=== PATIENT | male | born 1995 | race Caucasian/White ===

== ENCOUNTER 2019-10-20 00:27 | Emergency (ER) | payer MEDICAID, SELFPAY ==
[2019-10-20 00:30] VITALS: BP 127/98; PULSE 107; RESP 18; TEMP 36.8; O2SAT 100; BMI 34.2
--- NOTE | 2019-10-20 00:34 | XRR_ITS ---
PROCEDURE INFORMATION: Exam: XR Left Knee Exam date and time: 10/20/2019 12:55 AM Age: 24 years old Clinical indication: Injury or trauma; Injury history: Kicked by cow; Initial encounter; Blunt trauma; Knee; Left; Injury date: Today; Additional info: Kicked by cow this afternoon TECHNIQUE: Imaging protocol: XR Left knee. Views: 3 views. COMPARISON: No relevant prior studies available. FINDINGS: Bones/joints: Osseous structures of the knee normal. No fracture. No joint effusion. Soft tissues unremarkable. Soft tissues: See Bones/joints Finding. XR/XR knee LT 3V* [id number] IMPRESSION: Normal knee.
--- NOTE | 2019-10-20 00:35 | W.ED.LOWEXIN ---
HPI - Extremity Injury (Lower) General: Chief Complaint: Extremity Injury, Lower Stated Complaint: l leg injury Time Seen by Provider: 10/20/19 00:28 Source: patient Mode of arrival: ambulatory Limitations: no limitations History of Present Illness: HPI Narrative: Patient is a 24-year-old male who presents to ED today with complaints of pain about his left knee and thigh after he was kicked by a cow. Patient is ambulatory upon arrival to the ED. complaint: thigh injury Onset (ago): hour(s) Injury: Left: thigh Type of Injury: blunt Place: home Severity: moderate Relieving factors: immobilization Exacerbating factors: weight bearing, movement and palpation Context: direct blow Associated symptoms: Reports no associated symptoms Other symptoms: none Review of Systems Musc: Reports: other (pain to L lateral distal thigh) Skin/Breast: Reports: other (denies bruising/swelling ) FORMERLY [facility], [facility]–1983 ED PFSH: Social History (Updated 09/30/19 @ 15:41 by Jen Villalobos LPN) Smoking and tobacco status: current every day smoker smokeless tobacco Alcohol intake: never Physical Exam Const: COMMON NORMALS: no apparent distress, average body habitus, oriented x3, no limitations, healthy appearing, alert and well nourished Extremity: OTHER: pt with pain to L lateral lower thigh just proximal to lateral knee; pain with full ROM of knee; I do not appreciate any swelling, ecchymosis, or underlying hematoma Neuro: COMMON NORMALS: oriented x3, moves all extremities, no focal motor deficits, no sensory deficits noted and gait normal (limping) SENSORIUM/ORIENTATION: Yes alert Skin: COMMON NORMALS: no rashes or lesions noted GENERAL SKIN EXAM: no rashes or lesions noted Course Vital Signs: Vital signs: Vital Signs Temperature 98.2 F 10/20/19 00:30 Pulse Rate 100 10/20/19 01:10 Respiratory Rate 16 10/20/19 01:10 Blood Pressure 127/98 10/20/19 00:30 Pulse Oximetry 99 10/20/19 01:10 MDM - Extremity Injury (Lower) Imaging Data^: L knee/distal femur XR: My impression: NAD Discharge Plan Discharge Patient Disposition: Home, Self-Care Clinical Impression: Contusion of left thigh Qualifiers: Encounter type: initial encounter Qualified Code(s): S70.12XA - Contusion of left thigh, initial encounter Condition: Stable Prescriptions: No Action omeprazole 40 mg capsule,delayed release(DR/EC) 40 mg PO DAILY RF: 0 Discharge Orders: Discharge Order (Routine); Ordered 10/20/19 Ordered By: Feli Alcantara Referrals: , [Primary Care Provider] - Discharge Diet: Usual diet Discharge Activity: Increase activity as tolerated Patient Instructions: Contusion, Contusion in Adults (ED) Stand Alone Forms: Work/School Release Coding Level of Care Code ED Data Compiler for Agustin Terry
[2019-10-20 01:10] VITALS: PULSE 100; RESP 16; O2SAT 99
== END 2019-10-20 01:10 | disposition home or self-care (01) ==
LOC: ER 19:39
PROVIDERS: Emergency Provider Physician Assistant
DX: S70.12XA Contusion of left thigh, initial encounter (principal); F17.200 Nicotine dependence, unspecified, uncomplicated; W55.22XA Struck by cow, initial encounter
CPT/HCPCS: 12345; 73562; 99281; 99282

== ENCOUNTER 2022-02-24 22:06 | Emergency (ER) | payer MEDICAID, SELFPAY ==
[2022-02-24 22:12] VITALS: BP 156/95; PULSE 94; RESP 18; TEMP 36.6; O2SAT 98; BMI 33.9
--- NOTE | 2022-02-24 23:02 | W.ED.GENADLT ---
HPI - General Adult General: Chief complaint: General Medical Stated complaint: SOB, High B/P Time Seen by Provider: 02/24/22 22:48 History of Present Illness: Patient is a 26-year-old male comes to the ED with multiple complaints. Patient has been having some dental pain and issues for the past several weeks. He is trying to get appointment set up with a dentist to get his dental issues evaluated. He has been having some elevated blood pressure readings at home with systolic numbers in the 140s and a diastolic in upper 90s. Endorses feeling a little anxious and edgy as well. He states that he was a heavy chewing tobacco user, but he stopped using chewing tobacco approximately a week ago. Anxiety, agitation and edgy type symptoms started shortly after he stopped chewing tobacco Associated symptoms: Deny chest pain, dyspnea, headache(s), nausea, rash, palpitations or vomiting Review of Systems Narrative: Agitation and peters Const: Denies: fever(s), chills or fatigue Eyes: Denies: change in vision or eye discomfort ENMT: Reports: dental pain; Denies: throat pain, odynophagia, nasal discharge or nasal congestion Card: Denies: chest pain, palpitations, edema, swelling of feet/ankles, dyspnea on exertion or orthopnea Resp: Denies: dyspnea, productive cough or non-productive cough GI: Denies: abdominal pain, nausea, vomiting, diarrhea, constipation or hematochezia : Denies: flank pain, difficulty urinating, dysuria or hematuria Musc: Denies: neck pain, back pain or extremity swelling Skin/Breast: Denies: rash or new lesions Neuro: Denies: headache(s), numbness in extremities or weakness in extremities Psych: Reports: anxiety PFSH ED PFSH: Medical History No pertinent family history Surgical History No pertinent past surgical history Social History Smoking and tobacco status: current every day smoker smokeless tobacco Alcohol intake: never Physical Exam Narrative: EXAM NARRATIVE: Patient is sitting comfortably on exam bed while in the room. He is showing no signs of any acute distress or pain. He is laughing and joking throughout history and physical exam. Const: COMMON NORMALS: no acute distress, patient oriented x3, healthy appearing and alert GENERAL APPEARANCE: cooperative and comfortable HENMT: COMMON NORMALS: normocephalic HEAD & SCALP: normocephalic MOUTH: Normal oral and palatal mucosa present TEETH & GINGIVA: Yes caries and Yes poor dentition THROAT: posterior oropharynx normal and uvula midline Eye: COMMON NORMALS: Equal, round and reactive pupils present and conjunctivae normal CONJUNCTIVA: Yes conjunctivae normal PUPIL: Yes Equal, round and reactive pupils present Neck/C-Spine: COMMON NORMALS: supple GENERAL: Yes normal visual inspection Resp: COMMON NORMALS: normal respiratory effort, No retractions, No use of accessory muscles and clear to auscultation bilaterally AUSCULTATION: clear to auscultation bilaterally Cardio: COMMON NORMALS: regular rate, regular rhythm, S1 normal heart sound present, S2 normal heart sound present, No gallops present (Cardio), No clicks present (Cardio), No murmurs present (Cardio) and Peripheral pulses 2+ throughout RATE: regular rate RHYTHM: regular rhythm HEART SOUNDS: S1 normal heart sound present and S2 normal heart sound present PERIPHERAL PULSES: Peripheral pulses 2+ throughout GI: COMMON NORMALS: Normal to inspection, nondistended, normoactive bowel sounds present, Soft to palpation, non-tender and no masses PALPATION: Yes Soft to palpation : COMMON NORMALS: Yes no CVA tenderness BLADDER/KIDNEY EXAM: Yes no CVA tenderness Back/Pelvis: COMMON NORMALS: no CVA tenderness Extremity: COMMON NORMALS: normal to inspection Neuro: COMMON NORMALS: patient oriented x3 and no focal motor deficits SENSORIUM/ORIENTATION: Yes alert Skin: GENERAL SKIN EXAM: dry skin Course Vital Signs: Vital signs: Vital Signs Temperature 97.8 F 02/24/22 23:23 Pulse Rate 91 02/24/22 23:23 Respiratory Rate 18 02/24/22 23:23 Blood Pressure 149/78 02/24/22 23:23 Pulse Oximetry 98 02/24/22 23:23 [facility] - General Adult Medical Decision Making Patient is a 26-year-old male who comes to the ED with dental complaint, anxiety, agitation peters. Patient was a heavy chewing tobacco user and just stopped using chewing tobacco within the last week. His symptoms of agitation anxiety and moodiness started shortly after he stopped chewing tobacco. Patient likely having some chewing tobacco nicotine withdrawal symptoms. Vitals are stable. Patient appears in no acute distress or pain. He is poor dentition and dental caries throughout his teeth. Patient said he is trying to get an appointment set up with his dentist. He is stable for discharge home and sent home with a prescription for clindamycin. Follow-up with PCP about nicotine chewing tobacco withdrawal symptoms. Patient is done agree with plan. Discharge Plan Discharge Patient Disposition: Home Clinical Impression: Dental caries, Chewing tobacco nicotine dependence with withdrawal Condition: Stable Prescriptions: New clindamycin HCl 150 mg capsule 300 mg PO QID 7 Days Qty: 56 0RF No Action omeprazole 40 mg capsule,delayed release(DR/EC) 40 mg PO DAILY 0RF Discharge Orders: Discharge ED (Routine); Ordered 02/24/22 Ordered By: Jeremy Curtis Discharge Diet: Regular Discharge Activity: Increase activity as tolerated Activity Restrictions/Additional Instructions: Follow-up with PCP within the next couple weeks to have blood pressures rechecked. Call a dentist and get an appointment set up with them for further evaluation of dental issues. Take medications as prescribed. Return to the ER or your medical provider if condition worsens. Please read and understand discharge instructions. Thank you for choosing [facility] for your healthcare needs today. Please realize this is an emergency room and that we are providing you with a medical screening exam and this may not be complete and all inclusive of all the testing and or work up that you may need to determine your ailment or severity of your illness. It is very important that you follow up as instructed or that you return to the Emergency Department should you have concerns or if your condition changes or worsens in any way. Coding Level of Care Code ED Orthopaedic Doctor for Agustin Terry Exam Comprehensive
[2022-02-24 23:21] VITALS: BP 149/78; PULSE 91; RESP 18; TEMP 36.6; O2SAT 98
[2022-02-24] MEDS: clindamycin 150 mg Capsule 300 MG PO (23:21)
[2022-02-24 23:23] VITALS: BP 149/78; PULSE 91; RESP 18; TEMP 36.6; O2SAT 98
== END 2022-02-24 23:27 | disposition home or self-care (01) ==
PROVIDERS: Emergency Provider Physician Assistant
DX: K02.9 Dental caries, unspecified (principal); F17.223 Nicotine dependence, chewing tobacco, with withdrawal
CPT/HCPCS: 99283

== ENCOUNTER → 2022-03-09 15:57 | Outpatient (BNVA) | payer MEDICAID, SELFPAY | PROVIDERS: Visit Provider Family Medicine Adult Medicine | DX: R39.9 Unspecified symptoms and signs involving the genitourinary system (principal); R10.9 Unspecified abdominal pain | CPT/HCPCS: 81000 ==

== ENCOUNTER → 2022-06-10 16:12 | Outpatient (BNVA) | payer MEDICAID, SELFPAY | PROVIDERS: PCP Family Medicine; Visit Provider Family Medicine | DX: K58.9 Irritable bowel syndrome, unspecified (principal); F41.1 Generalized anxiety disorder; K21.9 Gastro-esophageal reflux disease without esophagitis; Z68.32 Body mass index [BMI] 32.0-32.9, adult; R03.0 Elevated blood-pressure reading, without diagnosis of hypertension | CPT/HCPCS: 80053; 80061; 85025 ==

== ENCOUNTER 2022-11-18 15:46 | Emergency (ER) | payer MEDICAID, SELFPAY ==
[2022-11-18 16:00] VITALS: BP 148/93; PULSE 82; RESP 16; TEMP 36.6; O2SAT 98
--- NOTE | 2022-11-18 16:07 | ECG_ITS ---
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 Measurements Intervals Howe Rate: 85 P: 38 SD: 165 QRS: -19 QRSD: 98 T: 18 QT: 344 QTc: 410 Interpretive Statements SINUS RHYTHM WITH SINUS ARRHYTHMIA INTERPRETATION BASED ON A DEFAULT AGE OF 40 YEARS No previous ECG available for comparison Electronically Signed On 11-18-2022 23:43:00 CDT by Bigg Lennon M.D. [email or web address], [id number]
[2022-11-18 17:34] VITALS: BP 163/101; PULSE 86; RESP 17; O2SAT 97
[2022-11-18 18:02] VITALS: BP 161/93; PULSE 87; RESP 16; O2SAT 98
--- NOTE | 2022-11-18 18:10 | XRR_ITS ---
PROCEDURE INFORMATION: Exam: XR Chest Exam date and time: 11/18/2022 6:19 PM Age: 27 years old Clinical indication: Other: Fatigue; Additional info: Fatigue, HTN TECHNIQUE: Imaging protocol: Radiologic exam of the chest. Views: 1 view. COMPARISON: No relevant prior studies available. FINDINGS: Lungs: Right lower lobe atelectasis versus minimal infiltrate. Pleural spaces: Unremarkable. No pleural effusion. No pneumothorax. Heart/Mediastinum: Unremarkable. No cardiomegaly. Bones/joints: Unremarkable. XR/XR chest 1V portable [id number] IMPRESSION: Right lower lobe atelectasis versus minimal infiltrate.
--- NOTE | 2022-11-18 18:13 | ED_ITS ---
HPI - Dizziness General: Chief Complaint: Dizziness Stated Complaint: high bp Time Seen by Provider: 11/18/22 18:01 History of Present Illness: HPI Narrative: Patient presents to the ER with complaints of high blood pressure and dizziness. Patient says he has been feeling off balance for about a week. Patient just recently went to his primary care doctor and was put on losartan 25 mg daily but has actually not started taking it. Patient reports today he was out driving his tractor felt dizzy and felt as if he was going to pass out. Is alert and oriented at this time with no complaints other than possibly being more tired than normal. MD elicited complaint: dizziness and other (High blood pressure) Onset (ago): week(s) (About the last week. But worse today) Timing: intermittent and episodic Severity: moderate Description: lightheadedness History of similar symptoms: Yes Exacerbating factors: nothing Relieving factors: nothing Associated symptoms: Reports no associated symptoms; Denies chest pain, chills, headache(s), nausea, palpitations or vomiting Associated neuro symptoms: Reports no associated symptoms; Deny numbness in extremities Review of Systems General: Reports: 10 or more systems reviewed and unremarkable except in HPI and below Const: Denies: fever(s) or chills Eyes: Denies: change in vision or blurry vision ENMT: Denies: throat pain or odynophagia Card: Denies: chest pain, palpitations or irregular heart rhythm Resp: Denies: dyspnea, productive cough or non-productive cough GI: Denies: abdominal pain, nausea, vomiting or diarrhea : Denies: flank pain, difficulty urinating or dysuria Musc: Denies: neck pain or back pain Skin/Breast: Denies: rash or pruritus Neuro: Denies: headache(s), numbness in extremities or weakness in extremities Psych: Denies: anxiety or depression PFSH ED PFSH: Medical History Chest wall pain, chronic No pertinent family history Surgical History No pertinent past surgical history Family History Mother Cancer kidney cancer CAD (coronary artery disease) Father Diabetes Cancer Agent [place]: lead to multiple Cancers Social History Smoking and tobacco status: never smoked Alcohol intake: never Lives independently: Yes Household members: spouse Housing: House Number of children: 2 Physical Exam Const: COMMON NORMALS: no acute distress, average body habitus, patient oriented x3, no limitations, healthy appearing, alert and well nourished HENMT: COMMON NORMALS: normocephalic, atraumatic, hearing grossly normal bilaterally, Normal external nose present and moist oral mucous membranes HEAD & SCALP: normocephalic and atraumatic NOSE: Normal external nose present Eye: COMMON NORMALS: Equal, round and reactive pupils present, EOMs intact bilaterally, conjunctivae normal and no scleral icterus CONJUNCTIVA: Yes conjunctivae normal PUPIL: Yes Equal, round and reactive pupils present Neck/C-Spine: COMMON NORMALS: full ROM, no lymphadenopathy, supple, no meningeal signs, no JVD and Thyroid normal THYROID: Thyroid normal Chest: COMMONS NORMALS: normal inspection of the chest and normal palpation of entire chest wall Resp: COMMON NORMALS: normal respiratory effort, No retractions, No use of accessory muscles and clear to auscultation bilaterally AUSCULTATION: clear to auscultation bilaterally Cardio: COMMON NORMALS: no JVD, regular rate, regular rhythm, S1 normal heart sound present, S2 normal heart sound present, No gallops present (Cardio), No clicks present (Cardio) and No murmurs present (Cardio) RATE: regular rate RHYTHM: regular rhythm HEART SOUNDS: S1 normal heart sound present and S2 normal heart sound present GI: COMMON NORMALS: Normal to inspection, nondistended, normoactive bowel sounds present, Soft to palpation, non-tender, No hepatosplenomegaly present and no masses PALPATION: Yes Soft to palpation and Yes No hepatosplenomegaly pr esent : COMMON NORMALS: Yes no CVA tenderness BLADDER/KIDNEY EXAM: Yes no CVA tenderness Back/Pelvis: COMMON NORMALS: no CVA tenderness Neuro: COMMON NORMALS: patient oriented x3, CN's II-XII intact bilaterally, moves all extremities, no focal motor deficits and no sensory deficits noted SENSORIUM/ORIENTATION: Yes alert MENINGEAL SIGNS: Yes no meningeal signs Course Vital Signs: Vital signs: Vital Signs Temperature 97.9 F 11/18/22 16:00 Pulse Rate 80 11/18/22 19:11 Respiratory Rate 16 11/18/22 19:11 Blood Pressure 143/82 11/18/22 19:11 Pulse Oximetry 98 11/18/22 19:11 Oxygen Delivery Me thod 11/18/22 19:11 MDM - Dizziness Medical Decision Making Patient presents to the ER with complaints of high blood pressure and dizziness. Patient says been feeling off balance and had high blood pressure for about a week has seen his primary care doc who started him on some blood pressure medicine but patient has not got this filled yet. Patient had labs performed that included CBC CMP and urinalysis as well as a chest x-ray all these were essentially benign. Patient may be slightly dehydrated with a specific gravity was 1.020 but this is minimal. These results were explained to the patient as well as the need for him to get his blood pressure medicine filled and start taking it. Patient is to follow-up with his primary care physician within the next week as well as to keep a blood pressure log and take with him to the appointment. Medical Records I reviewed the patient's medical records. Lab Data 11/18/22 18:00 11/18/22 18:00 Radiology Impressions Chest X-Ray 11/18/22 18:10 IMPRESSION: Right lower lobe atelectasis versus minimal infiltrate. Laboratory Results WBC 14.5 10^3/uL (4.0-10.0) H 11/18/22 18:00 RBC 6.03 10^6/uL (4.1-5.3) H 11/18/22 18:00 Hgb 16.8 g/dL (11.7-16.6) H 11/18/22 18:00 Hct 49.4 % (42.0-52.0) 11/18/22 18:00 MCV 81.9 fl (80-94) 11/18/22 18:00 MCH 27.9 pg (28.0-34.0) L 11/18/22 18:00 MCHC 34.0 g/dL (30.0-36.0) 11/18/22 18:00 RDW 12.4 % (12.1-15.1) 11/18/22 18:00 Plt Count 319 10^3/cmm (130-400) 11/18/22 18:00 MPV 9.9 fL (7.4-10.4) 11/18/22 18:00 Neut % (Auto) 74.1 % 11/18/22 18:00 Lymph % (Auto) 17.9 % 11/18/22 18:00 [place] % (Auto) 6.0 % 11/18/22 18:00 Eos % (Auto) 1.1 % 11/18/22 18:00 Baso % (Auto) 0.3 % 11/18/22 18:00 Neut # (Auto) 10.74 10^3/uL (1.8-7.7) H 11/18/22 18:00 Lymph # (Auto) 2.6 10^3/uL (0.8-4.8) 11/18/22 18:00 [place] # (Auto) 0.9 10^3/uL (0.2-0.9) 11/18/22 18:00 Eos # (Auto) 0.2 10^3/uL (0.0-0.8) 11/18/22 18:00 Baso # (Auto) 0.1 10^3/uL (0.0-0.1) 11/18/22 18:00 Nucleated RBC % (auto) 0 % 11/18/22 18:00 Nucleated RBCs # 0.0 /100WBC 11/18/22 18:00 Sodium 132 mmol/L (136-145) L 11/18/22 18:00 Potassium 3.6 mmol/L (3.5-5.1) 11/18/22 18:00 Chloride 96 mmol/L (98-107) L 11/18/22 18:00 Carbon Dioxide 26 mmol/L (22-29) 11/18/22 18:00 Anion Gap 13.6 (5-19) 11/18/22 18:00 BUN 11 mg/dL (6-20) 11/18/22 18:00 Creatinine 0.7 mg/dL (0.7-1.2) 11/18/22 18:00 GFR Calculation 135.3 mL/min (90-130) H 11/18/22 18:00 Glucose 85 mg/dL (65-115) 11/18/22 18:00 Calculated Osmolality 273 mOsm/kg (285-295) L 11/18/22 18:00 Calcium 9.1 mg/dL (8.5-10.5) 11/18/22 18:00 Magnesium 1.9 mg/dL (1.7-2.3) 11/18/22 18:00 Total Bilirubin 0.5 mg/dL (0.15-1.2) 11/18/22 18:00 AST 21 U/L (0-40) 11/18/22 18:00 ALT 36 U/L (0-41) 11/18/22 18:00 Alkaline Phosphatase 82 U/L (40-130) 11/18/22 18:00 Total Protein 7.4 g/dL (6.6-8.7) 11/18/22 18:00 Albumin 4.7 g/dL (3.5-5.2) 11/18/22 18:00 Globulin 2.7 g/dL (1.3-4.6) 11/18/22 18:00 Urine Color Yellow (Yellow) 11/18/22 18:00 Urine Appearance Clear (CLEAR) 11/18/22 18:00 Urine pH 6 (5-7) 11/18/22 18:00 Ur Specific [place] 1.020 (1.005-1.030) 11/18/22 18:00 Urine Protein Neg (Negative) 11/18/22 18:00 Urine Glucose (UA) Norm (Normal) 11/18/22 18:00 Urine Ketones Negative (Negative) 11/18/22 18:00 Urine Blood Neg (Negative) 11/18/22 18:00 Urine Nitrate Negative (Negative) 11/18/22 18:00 Urine Bilirubin Neg (Negative) 11/18/22 18:00 Urine Urobilinogen 4 mg/dL (Negative) H 11/18/22 18:00 Ur Leukocyte Esterase Negative (Negative) 11/18/22 18:00 Discharge Plan Discharge Patient Disposition: Home Clinical Impression: Vertigo Hypertension Qualifiers: Hypertension type: unspecified Qualified Code(s): I10 - Essential (primary) hypertension Condition: Stable Prescriptions: No Action losartan 25 mg tablet 25 mg PO DAILY Qty: 30 0RF Discharge Orders: Discharge ED (Routine); Ordered 11/18/22 Ordered By: Ivan Godwin Referrals: Xander Brooks MD [Primary Care Provider] - 1 week Patient Instructions: Hypertension, Dizziness (ED) Activity Restrictions/Additional Instructions: Please take your blood pressure pills as directed. Keep a blood pressure log. And follow-up with your family doctor within approximately 1 week. Coding Level of Care Code ED Regional Sales Associate for Agustin Terry
[2022-11-18 18:16] LABS: Basophils # 0.1 10^3/uL (0.0-0.1); Basophils % 0.3 %; Eosinophils # 0.2 10^3/uL (0.0-0.8); Eosinophils % 1.1 %; Hematocrit 49.4 % (42.0-52.0); Hemoglobin 16.8 g/dL (11.7-16.6); Lymphocytes # 2.6 10^3/uL (0.8-4.8); Lymphocytes % 17.9 %; Mean Corpuscular Hemoglobin 27.9 pg (28.0-34.0); Mean Corpuscular Volume 81.9 fl (80-94); Mean Platelet Volume 9.9 fL (7.4-10.4); Monocytes # 0.9 10^3/uL (0.2-0.9); Neutrophils # 10.74 10^3/uL (1.8-7.7); Neutrophils % 74.1 %; Nucleated Red Blood Cells % 0 %; Platelet Count 319 10^3/cmm (130-400); Red Blood Count 6.03 10^6/uL (4.1-5.3); Red Cell Distribution Width 12.4 % (12.1-15.1); White Blood Count 14.5 10^3/uL (4.0-10.0)
[2022-11-18 18:37] LABS: Add Urine Microscopic? NO; Charge for UA Resulting for Rev
[2022-11-18 18:46] LABS: Bilirubin Urine Neg (Negative); Blood Urine Neg (Negative); Glucose Urine UA Norm (Normal); Ketones Urine Negative (Negative); Leukocyte Esterase Urine Negative (Negative); Nitrate Urine Negative (Negative); Protein Urine Neg (Negative); Urine Appearance Clear (CLEAR); Urine Color Yellow (Yellow); Urobilinogen Urine 4 mg/dL (Negative); pH Urine 6 (5-7)
[2022-11-18 18:51] LABS: Magnesium 1.9 mg/dL (1.7-2.3)
[2022-11-18 18:52] LABS: Alanine Aminotransferase 36 U/L (0-41); Albumin Level 4.7 g/dL (3.5-5.2); Alkaline Phosphatase 82 U/L (40-130); Anion Gap 13.6 (5-19); Aspartate Amino Transferase 21 U/L (0-40); Blood Urea Nitrogen 11 mg/dL (6-20); Calcium 9.1 mg/dL (8.5-10.5); Carbon Dioxide 26 mmol/L (22-29); Chloride 96 mmol/L (98-107); Globulin 2.7 g/dL (1.3-4.6); Glomerular Filtration Rate 135.3 mL/min (90-130); Glucose 85 mg/dL (65-115); Osmolality Calculated 273 mOsm/kg (285-295); Potassium 3.6 mmol/L (3.5-5.1); Sodium 132 mmol/L (136-145); Total Bilirubin 0.5 mg/dL (0.15-1.2); Total Protein 7.4 g/dL (6.6-8.7)
[2022-11-18 19:11] VITALS: BP 143/82; PULSE 80; RESP 16; O2SAT 98
[2022-11-18 19:30] VITALS: BP 115/91; PULSE 82; RESP 16; O2SAT 99
== END 2022-11-18 19:31 | disposition home or self-care (01) ==
PROVIDERS: Nurse Practitioner Family; Emergency Provider Emergency Medicine; PCP Family Medicine
DX: R42 Dizziness and giddiness (principal); I10 Essential (primary) hypertension
CPT/HCPCS: 36415; 71045; 80053; 81003; 83735; 85025; 93005; 99285

== ENCOUNTER → 2023-02-14 16:34 | Outpatient (BNVA) | payer MEDICAID, SELFPAY | PROVIDERS: PCP Family Medicine; Visit Provider Family Medicine | DX: I10 Essential (primary) hypertension (principal) | CPT/HCPCS: 80048; 85025 ==

== ENCOUNTER → 2024-10-22 13:48 | Outpatient (BNVA) | payer MEDICAID, SELFPAY | PROVIDERS: PCP Family Medicine; Visit Provider Family Medicine | DX: I10 Essential (primary) hypertension (principal) | CPT/HCPCS: 80053; 80061; 85025 ==

== ENCOUNTER → 2025-03-09 16:27 | Outpatient (BNVA) | payer MEDICAID, SELFPAY | PROVIDERS: PCP Family Medicine; Visit Provider Registered Nurse Neonatal Intensive Care | DX: L94.2 Calcinosis cutis (principal) | CPT/HCPCS: 73590 ==